=== PATIENT | female | born 1990 | race Caucasian/White ===

== ENCOUNTER 2017-07-18 18:58 | Emergency (ER) | payer OTHER ==
[~2017-07-18] VITALS: Ht 160 cm; Wt 109.6 kg
[~2017-07-18 18:58] MED LIST: ALBUAER2 INH; BUPR8SUB19 SL; IBUP-1427 PO; IBUP1CAP9 PO
[2017-07-18 19:08] VITALS: BP 145/79; PULSE 101; TEMP 37.1; O2SAT 98; Ht 160 cm; Wt 109.6 kg
== END 2017-07-18 20:16 | disposition left against medical advice (07) ==
LOC: C.EDB 18:59
DX: E86.0 Dehydration (principal)

== ENCOUNTER 2018-01-25 17:08 | Emergency (ER) | payer OTHER ==
[~2018-01-25] VITALS: Ht 157.5 cm; Wt 111.3 kg
[~2018-01-25 17:08] MED LIST changes: -BUPR8SUB19 SL; -IBUP1CAP9 PO
[2018-01-25 17:12] VITALS: TEMP 36.8; Ht 157.5 cm; Wt 111.3 kg
[2018-01-25] MEDS ORDERED: SODIUM CHLORIDE 0.9% 1000ML 2,000 ML IV STA (17:23)
[2018-01-25] MEDS ORDERED: VNTHFA/IN INH (17:37)
[2018-01-25 17:49] LABS: BASO % 0.3 %; BASO ABS # 0.03 K/uL (0-0.2); EOS % 0.7 %; EOS ABS # 0.06 K/uL (0-0.5); HEMATOCRIT 38.8 % (37-47); HEMOGLOBIN 13.5 g/dL (12.0-16.0); IG# 0.02 K/uL (0.00-0.02); LYMPH % 18.1 %; LYMPH ABS # 1.61 K/uL (1.2-3.4); MEAN CORPUSCULAR HGB CONC 34.8 g/dl (32-36); MEAN PLATELET VOLUME 9.9 fL (7.4-10.4); MONO % 5.4 %; MONO ABS # 0.48 K/uL (0.11-0.59); NEUT % 75.3 %; NEUT ABS # 6.69 K/uL (1.4-6.5); PLATELET COUNT 217 K/uL (130-400); RED CELL DISTRIBUTION WIDTH SD 42.3 fL (36.4-46.3); WHITE BLOOD COUNT 8.89 K/uL (4.8-10.8)
[2018-01-25 18:06] LABS: ALBUMIN 3.8 gm/dl (3.4-5.0); CALCIUM 8.7 mg/dl (8.5-10.1); CREATININE 0.78 mg/dl (0.60-1.20); POTASSIUM 3.8 mmol/L (3.5-5.1)
[2018-01-25 18:08] LABS: TOTAL PROTEIN 7.4 gm/dl (6.4-8.2)
[2018-01-25 19:16] VITALS: BP 123/74; PULSE 89; O2SAT 98
--- NOTE | 2018-01-25 21:36 | EMERGENCY ROOM VISIT NOTE ---
History Report prepared by Loan: Megan Ivory Under the Supervision of: Dr. David Fortune D.O. First contact with patient: 17:17 Chief Complaint: OTHER COMPLAINT History of Present Illness The patient is a 28 year old female who presents to the Emergency Room with complaints of persistent shakiness starting around 1300 today. The patient was getting a tattoo today. Shortly after starting, she started feeling shaky and pale. She took a break and drank some soda. She started feeling better and resumed getting her tattoo, but she started feeling shaky again. She took several breaks throughout the process of getting her tattoo. She has never experienced this before with her previous tattoos. She had not eaten before her tattoo. She thought her blood sugar might be low, so she kept drinking soda. She vomited a little which she thinks might be from chugging soda. She checked her blood sugar and found that it was 231. She does not have any history of diabetes, but notes that her mother had diabetes. She was recently diagnosed with hypertension, but has not been taking the medications. She reports increased thirst recently. She denies any chest pain or SOB. She has an IUD. Source of History: patient Onset: 1300 Position: other (generalized) Quality: other (shakiness) Timing: other (persistent) Associated Symptoms: No chest pain, No SOB Review of Systems See HPI for pertinent positives & negatives. A total of 10 systems reviewed and were otherwise negative. Past Medical & Surgical Medical Problems: (1) Asthma (2) Bronchitis (3) section (4) PNEUMONIA, ORGANISM NOS (5) PREV DELIVERY, ANTEPARTUM COND OR COMPLIC (6) TUBAL LIGATION STATUS Family History Cancer Diabetes mellitus Heart disease Hypertension Seizures Social History Smoking Status: Current Every Day Smoker Alcohol Use: occasionally Drug Use: none Marital Status: Housing Status: lives with family Occupation Status: unemployed Current/Historical Medications Scheduled Buprenorphine Hcl (Subutex), 1 TAB SL UD Scheduled PRN Albuterol Hfa (Ventolin Hfa), 2 PUFFS INH Q4 PRN for SOB/Wheezing Ibuprofen (Ibuprofen), 400 MG PO 4-6HRS PRN for Pain Allergies Coded Allergies: BEE STING (Verified Allergy, Intermediate, SWELL UP, 03/26/16) Lamotrigine (Verified Allergy, Intermediate, RASH, 03/26/16) Penicillins (Verified Allergy, Mild, HIVES, 03/26/16) Physical Exam Vital Signs Date Time Temp Pulse Resp B/P (MAP) Pulse Ox O2 Delivery O2 Flow Rate FiO2 01/25/18 19:16 89 18 123/74 98 Room Air 01/25/18 18:45 93 18 125/71 98 Room Air 01/25/18 17:12 36.8 100 20 148/78 98 Room Air Physical Exam GENERAL: Sitting up in bed, anxious, disheveled, nontoxic EYE EXAM: normal conjunctiva. OROPHARYNX: no exudate, no erythema, lips, buccal mucosa, and tongue normal and mucous membranes are moist NECK: supple, no nuchal rigidity, no adenopathy, non-tender LUNGS: Clear to auscultation. Normal chest wall mechanics HEART: no murmurs, S1 normal and S2 normal ABDOMEN: abdomen soft, non-tender, normo-active bowel sounds, no masses, no rebound or guarding. BACK: Back is symmetrical on inspection and there is no deformity, no midline tenderness, no CVA tenderness. SKIN: no rashes and no bruising UPPER EXTREMITIES: upper extremities are grossly normal. LOWER EXTREMITIES: No pitting edema. NEURO EXAM: Normal sensorium, cranial nerves II-XII intact, normal speech, no weakness of arms, no weakness of legs. No drift. Finger to nose intact. Gross sensation intact. Medical Decision & Procedures Laboratory Results 01/25/18 17:30 Red Blood Count 4.36, Mean Corpuscular Volume 89.0, Mean Corpuscular Hemoglobin 31.0, Mean Corpuscular Hemoglobin Concent 34.8, Mean Platelet Volume 9.9, Neutrophils (%) (Auto) 75.3, Lymphocytes (%) (Auto) 18.1, Monocytes (%) (Auto) 5.4, Eosinophils (%) (Auto) 0.7, Basophils (%) (Auto) 0.3, Neutrophils # (Auto) 6.69, Lymphocytes # (Auto) 1.61, Monocytes # (Auto) 0.48, Eosinophils # (Auto) 0.06, Basophils # (Auto) 0.03 01/25/18 17:30 Test 01/25/18 17:30 01/25/18 19:09 White Blood Count 8.89 K/uL (4.8-10.8) Red Blood Count 4.36 M/uL (4.2-5.4) Hemoglobin 13.5 g/dL (12.0-16.0) Hematocrit 38.8 % (37-47) Mean Corpuscular Volume 89.0 fL (80-100) Mean Corpuscular Hemoglobin 31.0 pg (25-34) Mean Corpuscular Hemoglobin Concent 34.8 g/dl (32-36) Platelet Count 217 K/uL (130-400) Mean Platelet Volume 9.9 fL (7.4-10.4) Neutrophils (%) (Auto) 75.3 % Lymphocytes (%) (Auto) 18.1 % Monocytes (%) (Auto) 5.4 % Eosinophils (%) (Auto) 0.7 % Basophils (%) (Auto) 0.3 % Neutrophils # (Auto) 6.69 K/uL (1.4-6.5) Lymphocytes # (Auto) 1.61 K/uL (1.2-3.4) Monocytes # (Auto) 0.48 K/uL (0.11-0.59) Eosinophils # (Auto) 0.06 K/uL (0-0.5) Basophils # (Auto) 0.03 K/uL (0-0.2) RDW Standard Deviation 42.3 fL (36.4-46.3) RDW Coefficient of Variation 13.0 % (11.5-14.5) Immature Granulocyte % (Auto) 0.2 % Immature Granulocyte # (Auto) 0.02 K/uL (0.00-0.02) Urine Color YELLOW Urine Appearance CLEAR (CLEAR) Urine pH 6.5 (4.5-7.5) Urine Specific [place] 1.005 (1.000-1.030) Urine Protein NEG (NEG) Urine Glucose (UA) NEG (NEG) Urine Ketones NEG (NEG) Urine Occult Blood NEG (NEG) Urine Nitrite NEG (NEG) Urine Bilirubin NEG (NEG) Urine Urobilinogen NEG (NEG) Urine Leukocyte Esterase NEG (NEG) Urine WBC (Auto) 0 /hpf (0-5) Urine RBC (Auto) 0-4 /hpf (0-4) Urine Hyaline Casts (Auto) 0 /lpf (0-5) Urine Epithelial Cells (Auto) 0-5 /lpf (0-5) Urine Bacteria (Auto) NEG (NEG) Urine Test NEG (NEG) Anion Gap 6.0 mmol/L (3-11) Est Creatinine Clear Calc Drug Dose 126.4 ml/min Estimated GFR () 119.9 Estimated GFR (Non- 103.5 BUN/Creatinine Ratio 13.9 (10-20) Calcium Level 8.7 mg/dl (8.5-10.1) Total Bilirubin 0.3 mg/dl (0.2-1) Direct Bilirubin 0.1 mg/dl (0-0.2) Aspartate Amino Transf (AST/SGOT) 13 U/L (15-37) Alanine Aminotransferase (ALT/SGPT) 34 U/L (12-78) Alkaline Phosphatase 72 U/L (45-117) Total Protein 7.4 gm/dl (6.4-8.2) Albumin 3.8 gm/dl (3.4-5.0) Lipase 79 U/L (73-393) Bedside Glucose 107 mg/dl (70-90) Laboratory results per my review. Medications Administered Medications (Trade) Dose Ordered Sig/Valeriy Route Start Time Stop Time Status Last Admin Dose Admin Sodium Chloride 2,000 ml @ 999 mls/hr Q2H1M STAT IV 01/25/18 17:23 01/25/18 19:23 DC 01/25/18 17:46 999 MLS/HR ECG Per My Interpretation Indication: weakness Rate (beats per minute): 88 Rhythm: sinus rhythm Findings: other (no PVC, normal axis) ED Course ED COURSE: Vital signs were reviewed and showed tachycardic. The patients medical record was reviewed The above diagnostic studies were performed and reviewed. ED treatments and interventions as stated above. 1718: The patient was evaluated in room A12B. A complete history and physical examination was performed. 1723: Sodium Chloride 2000 ml @ 999 mls/hr IV. 1921: Upon reevaluation, the patient is feeling better. I discussed my findings with the patient and she understands and agrees with the treatment plan. Based on the patients age, coexisting illnesses, exam and lab findings the decision to treat as an outpatient was made. The patient remained stable while under my care. The patient appeared well at the time of discharge. Medical Decision Differential Diagnosis includes but is not limited to dehydration, stroke, anemia, hypoglycemia, hyponatremia, hypernatremia, urinary tract infection, pneumonia, bronchitis, sepsis, gastroenteritis, additional abdominal pathology, metabolic abnormalities and infections. Patient is a 28-year-old female who presents the ER for feeling dizzy and lightheaded while receiving a tattoo. Patient did not eat anything prior to getting the tattoo. She has no other complaints. No chest pain or shortness of breath. CBC along with BMP, LFTs, bilirubin lipase is unremarkable. EKG was benign. Her friend checked her blood sugar was in the 230s. Blood sugar here was slightly elevated at 140. No. She did eat and drink a bunch of soda. I do favor that her symptoms were likely secondary to low blood sugar which was overcompensated for with drinking a large amount of soda and eating. I did recommend following up with PCP tomorrow morning to repeat blood sugars. Discussed with Pt concerning signs and symptoms to watch out for. Pt was instructed to follow up with their PCP and discussed with the patient their option to return to the ED at anytime for persistent or worsening symptoms. The appropriate anticipatory guidance and out-patient management, including indications for return to the emergency department, were explained at length to the patient and understood. Medication Reconcilliation Current Medication List: was personally reviewed by me Blood Pressure Screening Patient's blood pressure: Normal blood pressure Blood pressure disposition: Did not require urgent referral Impression Primary Impression: Weakness Scribe Attestation The scribe's documentation has been prepared under my direction and personally reviewed by me in its entirety. I confirm that the note above accurately reflects all work, treatment, procedures, and medical decision making performed by me. Departure Information Dispostion Home / Self-Care Forms WORK / SCHOOL INSTRUCTIONS, HOME CARE DOCUMENTATION FORM, IMPORTANT VISIT INFORMATION Patient Instructions My [facility], ED Weakness [facility] Additional Instructions Please follow up with your primary care doctor with in the next 24 hours. Any worsening of your symptoms, please return to the ED immediately. This includes any fevers greater than 100.4, worsening pain, chest pain, shortness breath, persistent nausea, vomiting, unable to eat or drink, or any other concerning signs or symptoms from your standpoint. Please follow-up with your primary care doctor in the next 24 hours in regards to your blood sugars.
[2018-01-25] MEDS ORDERED: IBUP1CAP9 PO (21:42)
[2018-01-25] MEDS ORDERED: BUPR8SUB19 SL (21:42)
== END 2018-01-25 19:32 | disposition home or self-care (01) ==
LOC: C.EDB 17:09 → C.EDA 19:32
DX: R53.1 Weakness (principal); J45.909 Unspecified asthma, uncomplicated; F17.200 Nicotine dependence, unspecified, uncomplicated; Z91.030 Bee allergy status; Z88.0 Allergy status to penicillin; Z88.8 Allergy status to other drugs, medicaments and biological substances

== ENCOUNTER → 2018-01-29 | Outpatient (CLI) | payer OTHER ==
[~2018-01-29] MED LIST changes: -ALBUAER2 INH; +BUPR8SUB19 SL; -IBUP-1427 PO; +IBUP1CAP9 PO; +VNTHFA/IN INH
[2018-01-29 17:46] LABS: BASO % 0.2 %; BASO ABS # 0.02 K/uL (0-0.2); EOS % 1.9 %; EOS ABS # 0.17 K/uL (0-0.5); HEMATOCRIT 41.9 % (37-47); HEMOGLOBIN 14.3 g/dL (12.0-16.0); IG# 0.02 K/uL (0.00-0.02); LYMPH % 26.6 %; LYMPH ABS # 2.32 K/uL (1.2-3.4); MEAN CELL VOLUME 90.7 fL (80-100); MEAN CORPUSCULAR HGB CONC 34.1 g/dl (32-36); MEAN PLATELET VOLUME 10.1 fL (7.4-10.4); MONO % 4.8 %; MONO ABS # 0.42 K/uL (0.11-0.59); NEUT % 66.3 %; NEUT ABS # 5.77 K/uL (1.4-6.5); PLATELET COUNT 248 K/uL (130-400); RED CELL DISTRIBUTION WIDTH CV 13.5 % (11.5-14.5); RED CELL DISTRIBUTION WIDTH SD 44.4 fL (36.4-46.3); WHITE BLOOD COUNT 8.72 K/uL (4.8-10.8)
[2018-01-30 06:22] LABS: HEMOGLOBIN A1C 5.8 % (4.5-5.6)
== END | disposition home or self-care (01) ==
LOC: C.LABBFT 12:09
PROVIDERS: ATTEND Physician Assistant Medical
DX: R73.09 Other abnormal glucose (principal); L65.9 Nonscarring hair loss, unspecified

== ENCOUNTER 2018-03-05 18:00 | Emergency (ER) | payer OTHER ==
[~2018-03-05] VITALS: Ht 157.5 cm; Wt 100.2 kg
[2018-03-05 18:04] VITALS: TEMP 36.8; Ht 157.5 cm; Wt 100.2 kg
--- NOTE | 2018-03-05 18:31 | EMERGENCY ROOM VISIT NOTE ---
History Report prepared by Loan: Yusra Dailey Under the Supervision of: Dr. Eddie Lucas M.D. (Yusra Dailey) First contact with patient: 18:11 Chief Complaint: OTHER COMPLAINT Stated Complaint: STRANGE FEELING THROUGHOUT BODY, PAIN IN L LEG History of Present Illness The patient is a 28 year old female who presents to the Emergency Room with complaints of intermittent generalized tingling and weakness beginning this afternoon. The patient was diagnosed with diabetes a month ago. Since being diagnosed, has been cutting down on her sugar intake. She reports her A1C was 5.8. The patient has been checking sugar level regularly. When her sugars run low she states she gets a "strange tingling sensation throughout my body". The patient reports her face felt numb this afternoon. She also notes intermittent numbness in her left leg. The patient has a history of anxiety. She reports she has been feeling anxious recently with the diabetes diagnoses. The patient has a history of 3 C-sections. She was put on Topamax for headaches a couple months ago which she reports she has not been taking. She is also on high blood pressure medication which she has not been taking either. The patient smokes cigarettes. The patient has Mirena. Source of History: patient Onset: this afternoon Position: other (generalized) Quality: other (weakness and tingling) Timing: constant Associated Symptoms: + weakness, + numbness Review of Systems See HPI for pertinent positives & negatives. A total of 10 systems reviewed and were otherwise negative. Past Medical & Surgical Medical Problems: (1) Asthma (2) Bronchitis (3) section (4) PNEUMONIA, ORGANISM NOS (5) PREV DELIVERY, ANTEPARTUM COND OR COMPLIC (6) TUBAL LIGATION STATUS Family History Cancer Diabetes mellitus Heart disease Hypertension Seizures Social History Smoking Status: Current Every Day Smoker Alcohol Use: occasionally Drug Use: none Marital Status: Housing Status: lives with family Occupation Status: unemployed Current/Historical Medications Scheduled Buprenorphine Hcl (Subutex), 1 TAB SL UD Scheduled PRN Albuterol Hfa (Ventolin Hfa), 2 PUFFS INH Q4 PRN for SOB/Wheezing Ibuprofen (Ibuprofen), 400 MG PO 4-6HRS PRN for Pain Allergies Coded Allergies: BEE STING (Verified Allergy, Intermediate, SWELL UP, 03/05/18) Lamotrigine (Verified Allergy, Intermediate, RASH, 03/05/18) Penicillins (Verified Allergy, Mild, HIVES, 03/05/18) Physical Exam Vital Signs Date Time Temp Pulse Resp B/P (MAP) Pulse Ox O2 Delivery O2 Flow Rate FiO2 03/05/18 19:13 80 18 123/71 95 Room Air 03/05/18 18:04 36.8 94 18 132/89 96 Room Air Physical Exam GENERAL: Patient is anxious appearing and in no acute distress. EYES: No scleral icterus, unremarkable pupils. ENT: Mucous membranes moist, no nasal congestion. NECK: No masses appreciated, no meningismus, trachea is midline. RESPIRATORY: No dyspnea. Clear to auscultation and equal bilaterally. No wheeze , no rhonchi. CARDIOVASCULAR: Regular rate and rhythm. No murmurs, rubs, gallops appreciated. GASTROINTESTINAL: Abdomen soft, nontender, no peritonitis. Bowel sounds positive. No masses appreciated. BACK: No midline tenderness, no CVA tenderness EXTREMITIES: Normal motion all extremities, no cyanosis, no edema. NEUROLOGIC: Alert and oriented, no acute motor or sensory deficits, no focal weakness, cranial nerves grossly intact. SKIN: No rash, no jaundice, no diaphoresis. Medical Decision & Procedures ER Provider Diagnostic Interpretation: Radiology results and stated below per my review and radiologist interpretation: LEFT LOWER EXTREMITY VENOUS DOPPLER HISTORY: left lower leg pains COMPARISON STUDY: None. FINDINGS: There is normal compressibility, flow, and augmentation within the left lower extremity deep venous system. IMPRESSION: No DVT within the left lower extremity. Electronically signed by: Martin Dunn M.D. Laboratory Results 03/05/18 18:30 Red Blood Count 4.66, Mean Corpuscular Volume 86.1, Mean Corpuscular Hemoglobin 30.9, Mean Corpuscular Hemoglobin Concent 35.9, Mean Platelet Volume 11.1, Neutrophils (%) (Auto) 63.8, Lymphocytes (%) (Auto) 29.6, Monocytes (%) (Auto) 5.2, Eosinophils (%) (Auto) 1.0, Basophils (%) (Auto) 0.2, Neutrophils # (Auto) 4.03, Lymphocytes # (Auto) 1.87, Monocytes # (Auto) 0.33, Eosinophils # (Auto) 0.06, Basophils # (Auto) 0.01 03/05/18 18:30 Test 03/05/18 18:25 03/05/18 18:30 Urine Color YELLOW Urine Appearance CLEAR (CLEAR) Urine pH 6.5 (4.5-7.5) Urine Specific [place] 1.004 (1.000-1.030) Urine Protein NEG (NEG) Urine Glucose (UA) NEG (NEG) Urine Ketones 1+ (NEG) Urine Occult Blood NEG (NEG) Urine Nitrite NEG (NEG) Urine Bilirubin NEG (NEG) Urine Urobilinogen NEG (NEG) Urine Leukocyte Esterase NEG (NEG) Urine WBC (Auto) 0 /hpf (0-5) Urine RBC (Auto) 0-4 /hpf (0-4) Urine Hyaline Casts (Auto) 0 /lpf (0-5) Urine Epithelial Cells (Auto) 0-5 /lpf (0-5) Urine Bacteria (Auto) NEG (NEG) Urine Test NEG (NEG) White Blood Count 6.31 K/uL (4.8-10.8) Red Blood Count 4.66 M/uL (4.2-5.4) Hemoglobin 14.4 g/dL (12.0-16.0) Hematocrit 40.1 % (37-47) Mean Corpuscular Volume 86.1 fL (80-100) Mean Corpuscular Hemoglobin 30.9 pg (25-34) Mean Corpuscular Hemoglobin Concent 35.9 g/dl (32-36) Platelet Count 158 K/uL (130-400) Mean Platelet Volume 11.1 fL (7.4-10.4) Neutrophils (%) (Auto) 63.8 % Lymphocytes (%) (Auto) 29.6 % Monocytes (%) (Auto) 5.2 % Eosinophils (%) (Auto) 1.0 % Basophils (%) (Auto) 0.2 % Neutrophils # (Auto) 4.03 K/uL (1.4-6.5) Lymphocytes # (Auto) 1.87 K/uL (1.2-3.4) Monocytes # (Auto) 0.33 K/uL (0.11-0.59) Eosinophils # (Auto) 0.06 K/uL (0-0.5) Basophils # (Auto) 0.01 K/uL (0-0.2) RDW Standard Deviation 40.6 fL (36.4-46.3) RDW Coefficient of Variation 12.9 % (11.5-14.5) Immature Granulocyte % (Auto) 0.2 % Immature Granulocyte # (Auto) 0.01 K/uL (0.00-0.02) Anion Gap 8.0 mmol/L (3-11) Est Creatinine Clear Calc Drug Dose 113.1 ml/min Estimated GFR () 112.9 Estimated GFR (Non- 97.4 BUN/Creatinine Ratio 13.8 (10-20) Calcium Level 9.0 mg/dl (8.5-10.1) Magnesium Level 1.8 mg/dl (1.8-2.4) Total Creatine Kinase 105 U/L (26-192) Laboratory results as reviewed by me. Medications Administered Medications (Trade) Dose Ordered Sig/Valeriy Route Start Time Stop Time Status Last Admin Dose Admin Potassium Chloride (Klor-Con M10) 40 meq STK-MED ONCE .ROUTE 03/05/18 19:46 03/05/18 19:47 DC 03/05/18 19:49 40 MEQ ECG Per My Interpretation Indication: weakness Rate (beats per minute): 87 Rhythm: normal sinus Findings: no acute ischemic change, prolonged QT, other (QTC 440) ED Course 1810: The patient was evaluated in room C2B. A complete history and physical exam was performed. 1933: I updated the patient on her test results. She is feeling better and would like to go home. 194: Reevaluated the patient. Discussed results and discharge instructions: She verbalized understanding and agreement. The patient is ready for discharge. Medical Decision Differential: Sepsis, Infectious (UTI/Pneumonia/Meningitis/etc), Metabolic/ Electrolyte Abnormality, Cardiac, Dehydration, Anemia, Hepatic, Endocrine, Toxicologic, Neurologic, amongst other pathologies entertained. 28 yr old female with vague constellation of complaints which including paresthesias, generalized weakness/fatigue, cramping of left leg, etc. Exam is benign other htan she is mildly anxious appearing. Breathing comfortably in no distress with unremarkable vitals. She admits anxiety about recent diagnosis of Pre-diabetes and I suspect this has been weighing on her quite a bit. We discussed all looking good other than mild hypoK. She is stable, looks well and in no distress. She is to follow up with PCP. Reviewed symptoms requiring RTED. Suggested she consider or talk to PCP regarding multivitamin. Medication Reconcilliation Current Medication List: was personally reviewed by me Blood Pressure Screening Patient's blood pressure: Normal blood pressure Impression Primary Impression: Fatigue Additional Impressions: Paresthesia Cramps of left lower extremity Hypokalemia Scribe Attestation The scribe's documentation has been prepared under my direction and personally reviewed by me in its entirety. I confirm that the note above accurately reflects all work, treatment, procedures, and medical decision making performed by me. Departure Information Dispostion Home / Self-Care Referrals Dillon Arrington M.D. (PCP) Forms HOME CARE DOCUMENTATION FORM, IMPORTANT VISIT INFORMATION, WORK / SCHOOL INSTRUCTIONS Patient Instructions My [facility] Additional Instructions You were found to have a mildly low potassium. It is important to eat a well balanced diet. You have been examined and treated today on an emergency basis only. This is not a substitute for, or an effort to provide, complete comprehensive medical care. It is impossible to recognize and treat all injuries or illnesses in a single emergency department visit. It is therefore important that you follow up closely with your Primary Physician. Call as soon as possible for an appointment so you can review all labs, imaging and other testing that you had. Return to Emergency Department, call 911 or seek immediate medical attention if you feel your symptoms are worsening. Problem Qualifiers
[2018-03-05 18:49] LABS: BASO % 0.2 %; BASO ABS # 0.01 K/uL (0-0.2); EOS ABS # 0.06 K/uL (0-0.5); HEMATOCRIT 40.1 % (37-47); HEMOGLOBIN 14.4 g/dL (12.0-16.0); IG# 0.01 K/uL (0.00-0.02); LYMPH % 29.6 %; LYMPH ABS # 1.87 K/uL (1.2-3.4); MEAN CELL VOLUME 86.1 fL (80-100); MEAN CORPUSCULAR HEMOGLOBIN 30.9 pg (25-34); MEAN CORPUSCULAR HGB CONC 35.9 g/dl (32-36); MEAN PLATELET VOLUME 11.1 fL (7.4-10.4); MONO % 5.2 %; MONO ABS # 0.33 K/uL (0.11-0.59); NEUT % 63.8 %; NEUT ABS # 4.03 K/uL (1.4-6.5); PLATELET COUNT 158 K/uL (130-400); RED CELL DISTRIBUTION WIDTH CV 12.9 % (11.5-14.5); RED CELL DISTRIBUTION WIDTH SD 40.6 fL (36.4-46.3); WHITE BLOOD COUNT 6.31 K/uL (4.8-10.8)
--- NOTE | 2018-03-05 19:01 | DIAGNOSTIC IMAGING REPORT ---
LEFT LOWER EXTREMITY VENOUS DOPPLER HISTORY: left lower leg pains COMPARISON STUDY: None. FINDINGS: There is normal compressibility, flow, and augmentation within the left lower extremity deep venous system. IMPRESSION: No DVT within the left lower extremity. Electronically signed by: Martin Dunn M.D. 03/05/2018 7:00 PM Dictated Date/Time: 03/05/2018 7:00 PM
[2018-03-05 19:13] VITALS: BP 123/71; PULSE 80; O2SAT 95
[2018-03-05 19:13] LABS: CREATININE 0.82 mg/dl (0.60-1.20); POTASSIUM 3.1 mmol/L (3.5-5.1)
[2018-03-05] MEDS ORDERED: POTASSIUM CHLORIDE 20 MEQ TABCR PO STA (19:41)
[2018-03-05] MEDS ORDERED: POTASSIUM CHLORIDE 10 MEQ TABCR ONE (19:46)
== END 2018-03-05 19:50 | disposition home or self-care (01) ==
LOC: C.EDB 18:02 → C.EDC 19:50
DX: R53.83 Other fatigue (principal); R20.2 Paresthesia of skin; R25.2 Cramp and spasm; E87.6 Hypokalemia; E11.9 Type 2 diabetes mellitus without complications; I10 Essential (primary) hypertension; F17.200 Nicotine dependence, unspecified, uncomplicated; J45.909 Unspecified asthma, uncomplicated; Z79.899 Other long term (current) drug therapy; Z91.030 Bee allergy status; Z88.0 Allergy status to penicillin; Z88.8 Allergy status to other drugs, medicaments and biological substances